=== PATIENT | female | born 1955 | race Caucasian/White ===

== ENCOUNTER 2018-01-23 05:35 | Observation (INO) | payer OTHER ==
--- NOTE | 2018-01-12 14:15 | NUR ---
PATIENT HERE FOR PREADMISSION APPOINTMENT. SHE IS SCHEDULED FOR A LEFT TOTAL HIP REPLACEMENT ON 01/23/18. SHE HAS ONE STEP INTO THE HOME AND NO STEPS ONCE INSIDE THE HOME. SHE HAS A WALK IN SHOWER WITH HAND HELD SHOWER HEAD. SHE STATES SHE HAS A SHOWER BENCH AND TOILET SEAT. SHE WAS TOLD IN THE OFFICE THERE WOULD BE A SCRIPT GIVEN FOR A WALKER WHEN SHE WAS DISCHARGED. DC PLANNING WILL BE NOTIFIED. HER KARMA WILL BE HERE TO TRANSPORT HER HOME AND TO APPOINTMENTS. SHE DOES LIVE IN [place] AND WOULD LIKE PHYSICAL THERAPY SET UP AT [facility]. THIS INFORMATION WILL BE SENT TO DR. SOTO OFFICE AND DC PLANNING FOR FURTHER FOLLOW UP.
[~2018-01-23] VITALS: Ht 162.6 cm; Wt 86.6 kg
[~2018-01-23 05:35] MED LIST: CITALOPRAM HBR20 MG PO; DULERA 200 MCG/13 GM INH; LAMICTAL200 MG PO; LITHIUM CARBON300 M1 PO; METOPROLOL SUC100 MG PO; OMEPRAZOLE20 MG PO; SPIRONOLACTONE50 MG PO; TUMS200 MG PO; VENTOLIN HFA18 GM INH; XYZAL5 MG PO
--- NOTE | 2018-01-23 08:37 | NUR ---
01/23/18 0837 Nivia Skelton 9530-PATIENT ARRIVED TO PACU ON RA O2 SAT 90% PATIENT AWAKE DENIES PAIN OR NAUSEA. ENCOURAGED TO TAKE DEEP BREATHES O2 SAT INCREASED TO 97%. DRESSING TO LEFT HIP CDI. PALPABLE LEFT PEDAL PULSE GOOD CAP REFILL AND WARMTH. ADDUCTOR PILLOW IN PLACE. RR EVEN
--- NOTE | 2018-01-23 10:26 | NUR ---
PT TO FLOOR VIA BED, ACCOMPANIED BY RAMIREZ RN AT 1005. PT AWAKE, ALERT, ORIENTED X 4. PT DENIES PAIN, DENIES NAUSEA. HAS TRANEXAMIC ACID INFUSING, ORDERED. PT ABLE TO MOVE ANKLES AND TOES A SMALL AMOUNT. REPORTS NUMBNESS AND TINGLING TO LOWER LEGS AND FEET. DRESSING TO LEFT HIP C/D/I. CRYO CUFF IN PLACE, SCDs ON, KERRY HOSE ON, AND ALSO HEEL PROTECTORS. BOLSTER IN PLACE BETWEEN LEGS.
--- NOTE | 2018-01-23 11:37 | OR ---
[facility] [address] [place], [place] [address] Signed DATE OF OPERATION: 01/23/2018 SURGEON: Bethany Jordan MD PREOPERATIVE DIAGNOSIS: Degenerative joint disease, left hip. POSTOPERATIVE DIAGNOSIS: Degenerative joint disease, left hip. PROCEDURE PERFORMED: Left total hip arthroplasty. FILTER PRESS SUPERVISOR: KAREEM Lopez. Sydnee was present in critical positioning, retraction, and wound closure. ANESTHESIA: Spinal. BLOOD LOSS: 200 mL. IMPLANTS: Dimas Secur-Fit Advanced, size 8 stem, 54 cup, and a +0 head. BRIEF HISTORY: Leonel is a 62-year-old female with progressive worsening of hip pain. She had undergone nonoperative treatment up to and including steroid injections with only temporary relief. Risks and benefits of operative treatment were discussed with her. She elected to proceed. DESCRIPTION OF PROCEDURE: Once consent was obtained, she was taken to the operating room. After adequate anesthesia, she was placed in the right lateral decubitus position. All downside pressure points well padded. Axillary roll was placed. The leg was then prepped and draped in a standard sterile fashion and standard approach and anterior lateral approach was taken through the skin and subcutaneous tissue. The IT band was divided longitudinally. The vastus lateralis was then split for the tip of the trochanter distally and elevated in a subperiosteal manner around the level of the lesser Electronically Signed By: BETHANY JORDAN MD 01/23/18 1137 PATIENT NAME: LEONEL MCKINLEY OPERATIVE REPORT DATE OF : 51 REPORT #: [id number] PHYSICIAN: BETHANY JORDAN MD PCP: MER BLANC MD REPORT IS CONFIDENTIAL AND NOT TO BE RELEASED WITHOUT AUTHORIZATION [facility] [address], [place] [address] Signed trochanter. The gluteus medius was split bluntly. Gluteus minimus and capsule were split sharply from the trochanter to the acetabular rim. The capsule was then cleared off the neck. She had an extremely large labrum as unable to dislocate her hip safely, so the femoral neck cut was made 1 fingerbreadth above the lesser trochanter and the femoral head was removed using a corkscrew. The labrum was then removed. Acetabular soft tissues were cleared off and the acetabulum was reamed starting with a 45 went to 54. The 54 cup was then impacted in 45 degrees of abduction and 15 degrees of anteversion. The liner was impacted. The attention was then turned to the proximal femur, which was opened using the cookie cutter, followed by the Charnley awl. The femur was then sequentially reamed up to a 9 and broached to an 8. The 8 was quite well fitting in the metaphysis. The standard offset neck, +0 head were attached and the hip was reduced. The leg lengths found to be equal. She had 110 degrees of flexion, 30-degree internal and external rotation with no impingement. The hip was then dislocated and the trial was removed. The final stem was impacted until it was well seated and stable. The +0 head was impacted onto the stem. The hip was again reduced, taken through the range of motion as noted above and found to be stable. The wound was copiously irrigated with antibiotic solution throughout the procedure. A total of 2 L antibiotic irrigation was used. The periarticular soft tissues were then injected with 100 mL ropivacaine, Toradol mixture. The capsule was closed with #1 Vicryl. The vastus and IT band layers were closed independently using #2 Stratafix subcutaneous tissue with 0 Stratafix, and skin with macario. Wound was dressed with Mepilex dressing and Opsite. She was placed in a hip abduction brace, taken to the recovery room in satisfactory condition. All sponge, needle, and instrument counts were correct. Bethany Jordan MD BA/MODL /[id number] Copies: ~ Electronically Signed By: BETHANY JORDAN MD 01/23/18 1137 PATIENT NAME: LEONEL MCKINLEY OPERATIVE REPORT DATE OF : 51 REPORT #: [id number] PHYSICIAN: BETHANY JORDAN MD PCP: MER BLANC MD REPORT IS CONFIDENTIAL AND NOT TO BE RELEASED WITHOUT AUTHORIZATION
--- NOTE | 2018-01-23 12:03 | NUR ---
PT IN BED, TOLERATED JELLO, CHICKEN BROTH, AND IS EATING CRACKERS. DENIES NAUSEA. DID REPORT PAIN TO LEFT HIP 3/10. PT'S PERSONAL SUPPLIES AND CALL LIGHT IN REACH. IN ROOM WITH PT.
--- NOTE | 2018-01-23 12:17 | NUR ---
PT REPORTED 3/10 PAIN TO LEFT HIP. GAVE DILAUDID 0.6 MG IV PRN. AT BEDSIDE.
--- NOTE | 2018-01-23 12:51 | NUR ---
PT IN BED. RATES PAIN TO LEFT HIP 10/15. HAS PERSONAL SUPPLIES AND CALL LIGHT IN REACH. PT REPORTS THAT SHE STILL FEELS A SMALL AMOUNT OF TINGLING TO LEFT FOOT, BUT THAT HER SENSATION IS INTACT. CAPILARY REFILL LESS THAN 3 SECONDS, PEDAL PULSES STRONG. DRESSING TO LEFT HIP C/D/I.
--- NOTE | 2018-01-23 12:57 | NUR ---
PT RESTING QUIETLY IN BED BY HERSELF. SHE WAS ALERT, AWAKE AND INVITED ME IN. SHE SAID SHE HAS NO PAIN, AND WILL PAY CLOSE ATTENTION. SHE SAID SHE HAS PRAYED ALOT IN PREP, AND HAS OTHERS PRAYING WELL. EXTENDED A BLESSING, WILL FOLLOW NEEDED
--- NOTE | 2018-01-23 14:14 | NUR ---
SALES REPRESENTATIVE PRINTING PAPER REPORTS TO THIS RN THAT PT IS HAVING 7/10 PAIN. THIS RN TO ROOM. PT REPORTS 8/10 PAIN. PT IS AWAKE AND ALERT. RR = 16 BPM. PAIN MEDICATION GIVEN (SEE MAR). PT DRIFTS OF TO SLEEP. RR=16BPM. BED RAILS UP. CALL LIGHT WITHIN REACH.
--- NOTE | 2018-01-23 14:52 | NUR ---
PT DROWSY, AROUSED TO VERBAL STIMULI, REPORTED THAT THE PAIN TO HER LEFT HIP HAS IMPROVED, BUT THAT SHE STILL HAS 7/10 PAIN TO LEFT HIP. THIS RN ASSESSED PT. DRESSING REMAINS C/D/I. DENIES FEELING URGE TO VOID AT THIS TIME. PT REPORTS "A LITTLE" TINGLING TO LEFT FOOT, BUT DENIES FEELING OF NUMBNESS. PT REMAINS ON 1L O2 VIA NC. PERSONAL SUPPLIES AND CALL LIGHT IN REACH.
--- NOTE | 2018-01-23 15:20 | NUR ---
PT GIVEN SCHEDULED MEDICATIONS. ALSO GIVEN DILAUDID 0.6 MG IV PRN FOR C/O 7/10 PAIN TO LEFT HIP.
--- NOTE | 2018-01-23 15:25 | NUR ---
NOTIFIED DR. WOOTEN THAT PT'S SBP WAS 93 MAUNUAL, AND THAT HIS SCHEDULED METOPROLOL WAS HELD. DR. WOOTEN VERBALIZED UNDERSTANDING.
[2018-01-23] MEDS ORDERED: CYCLOBENZAPRINE10 MG PO (15:28)
--- NOTE | 2018-01-23 15:39 | NUR ---
Medications reconciled by pharmacist using pharmacy records and patient interview
--- NOTE | 2018-01-23 16:26 | NUR ---
PT C/O 9-05/17 PAIN. PT'S BP HAS BEEN SOFT, AND RESPIRATORY RATE 14-16. PT DROWSY, BUT AROUSABLE TO VERBAL STIMULI. NOTIFIED SALVADOR POSEY CRNA, WHO GAVE ORDER FOR PT TO RECIEVE THE PO ANALGESIC THAT DR. SOTO HAS ORDERED. ALSO NOTIFIED DR. SOTO OF ABOVE NOTED. DR. SOTO REQUESTED THAT THIS RN CONTACT SALVADOR POSEY CRNA, AND ASK THAT SHE COMES AND PLACES A FEMORAL BLOCK, AND TO LET SALVADOR KNOW THAT SHE CAN CALL DR. SOTO REAGARDING THIS. NOTIFIED SALVADOR VIA TELEPHONE OF ABOVE NOTED. SALVADOR STATED THAT SHE WOULD COME IN TO DO THIS.
--- NOTE | 2018-01-23 17:29 | NUR ---
PT IN BED. DID BLADDER SCAN, WHICH SHOWED 268 ML. PT DENIED URGE TO VOID.
--- NOTE | 2018-01-23 17:33 | NUR ---
SALVADOR POSEY, MULTI SITE LEASING CONSULTANT CAME TO FLOOR, SAW PT FOR PAIN CONTROL. SEE SALVADOR'S NOTES.
--- NOTE | 2018-01-23 17:39 | NUR ---
NOTIFIED DR. SOTO THAT PT HAS NOT YET VOIDED, AND THAT BLADDER SCAN SHOWED [address] SOTO THAT PT'S SBP HAS BEEN IN 90s TO LOW 100s SINCE ARRIVAL TO FLOOR FROM PACU. RECIEVED TORB TO GIVE 1 LITER NS BOLUS OVER 1 HOUR.
--- NOTE | 2018-01-23 18:00 | NUR ---
PT IS ON 2L O2 VIA NC, SHE DESATURATED TO 84% AT ONE POINT WHEN SALVADOR Sargent CRNA, AND DUSTIN GUZMÁN WERE WITH PT FOR FEMORAL BLOCK PLACEMENT. PT HAD BEEN ON RA AT THE TIME. PER REPORT FROM DUSTIN GUZMÁN, PT WAS PLACED ON 2L O2 WHEN SHE DESATURATED TO 84%, AND PT'S OXYGEN SATURAION LEVEL REMAINED 90% OR GREATER FOLLOWING APPLICATION OF O2. PT IS SLEEPING, HOB ELEVATED. SAT IS CURRENTLY 94%. PT AROUSED TO VERBAL STIMULI. RATED PAIN TO LEFT HIP 1-2/10, STATED THAT HER PAIN IS "MUCH BETTER" NOW.
--- NOTE | 2018-01-23 18:28 | NUR ---
PT HAD LEFT TOTAL HIP SURGERY TODAY. SBP HAS BEEN IN 90S-LOW 100S. PT GIVEN DILAUDID 0.6 MG IV PRN X 2, AND MORPHINE 2 MG IV PRN X 1 FOR REPORTS OF WORSENING PAIN TO LEFT HIP, REACHING HIGH 10/10. PT HAS NOT YET VOIDED URINE, AND BLADDER SCAN SHOWED 268 ML. PT IS RECIEVING 1 LITER NS BOLUS FOR SOFT PRESSURE AND NO VOID. SALVADOR P, PROCESS VALIDATION ENGINEER UP TO FLOOR, DID FEMORAL BLOCK. PT REPORTED PAIN DECREASED TO 1-2/10. PT DROWSY, BUT AROUSES EASILY TO VERBAL STIMULI. DRESSING TO LEFT HIP C/D/I. CMS INTACT. TOLERATED CLEAR LIQUIDS AND CRACKERS THUS FAR.
--- NOTE | 2018-01-23 19:40 | NUR ---
IN ROOM FOR REPORT, PT IS DROWSY BUT AWAKE ON AND OFF. PULSEOX IN ON AND PT'S RESPIRATIONS ARE EVEN AND NONLABORED ON 2 LNC. CALL LIGHT IS WITHIN REACH.
--- NOTE | 2018-01-23 20:45 | NUR ---
ROUNDED CHARGE. PATIENT IS RESTING IN BED. PATIENT DENIES ANY PAIN. PATIENT DENIES ANY COMMENTS, QUESTIONS, OR CONCERNS. NO NEEDS NOTED AT THIS TIME. CALL LIGHT IN REACH.
--- NOTE | 2018-01-23 22:57 | NUR ---
PT WAS NOT ABLE TO AMBULATE TO BEDSIDE COMMODE, HER LEGS WERE VERY WEAK EVEN THOUGH SHE REPORTS NO NUMBNESS OR TINGLING IN BILAT LE. PT ATTEMPTED TO VOID ON BEDPAN BUT WAS NOT ABLE. SPOKE WITH DR WOOTEN TO REPORT BLADDER SCAN OF 326 (TRIED BOTH BS MACHINES). DR WOOTEN SAID TO PLACE A GRANT CATH, DRAIN BAG, THEN GIVE 500 CC OF LR OVER 1 HOUR. THEN REPORT URINE OUTPUT TO HIM, KAMILLA.
--- NOTE | 2018-01-23 23:44 | NUR ---
PLACED GRANT CATH, PT TOLERATED WELL. THERE WAS A SMALL MISSED VOID ON THE BED AND GRANT DRAINED 360MLS. WILL START 500 CC BOLUS OF LR.
--- NOTE | 2018-01-24 00:19 | NUR ---
PT IS RESTING WITH EYES CLOSED, RESPIRATIONS ARE EVEN AND NONLABORED ON 1 LNC AND AT 94%. LR BOLUS IS INFUSING.
--- NOTE | 2018-01-24 01:19 | NUR ---
SPOKE WITH DR WOOTEN, TO REPORT URINE OUTPUT OF 50MLS AFTER 500MLS BOLUS RAN. WILL RECHECK BP AND HE WOULD LIKE TO BE NOTIFIED IF SBP IS LESS THAN 90. HE WOULD LIKE TO KEEP GRANT IN FOR THE NIGHT.
--- NOTE | 2018-01-24 03:08 | NUR ---
PT IS RESTING WITH EYES CLOSED, RESPIRATIONS ARE EVEN AND NONLABORED. CALL LIGHT IS WITHIN REACH.
--- NOTE | 2018-01-24 04:12 | NUR ---
WOKE PT TO ASSESS HER. SHE NOW REPORTS A LITTLE LESS FEELING IN HER LEFT LEG AND DENIES PAIN. HER LUNGS SOUND CLEAR BUT SHE HAS SOME SLIGHT CRACKLES IN HER LEFT LOWER LUNG. INCISION IS CDI AND CRYO CUFF IS IN PLACE. SHE HAS ABD WEDGE, AES, SCDS AND HEEL PROTECTORS ON. SHE IS ON 1 LNC AND AT 95%. SHE DENIES NEEDS, CALL LIGHT IS WITHIN REACH.
--- NOTE | 2018-01-24 05:38 | NUR ---
PT SLEPT WELL THROUGH THE NIGHT. O2 WAS TITRATED FROM 2 LNC TO 1LNC AND PULSEOX REMAINED ABOVE 93%. PT DENIED PAIN THROUGH THE NIGHT AND HAS CRYOCUFF, AES, SCDS, HEEL PROTECTORS AND ABD WEDGE IN PLACE. IV INFUSING D5NS WITH 20 OF K+ AT 125MLS/HR. SHE WAS NOT ABLE TO VOID LAST NIGHT AND BLADDER SCAN ONLY SHOWED 326MLS. SPOKE WITH DR WOOTEN AND HE SAID TO PLACE A GRANT CATH WHICH DRAINED 360. THEN ORDERED 500 MLS OF LR OVER 1 HOUR. AFTER THAT HOUR SHE ONLY VOIDED 50 MLS WHICH WAS RELAYED TO DR WOOTEN. HE SAID TO CALL IF HER SBP WAS LESS THAN 90 AND IT IMPROVED AFTER THAT. WILL UPDATE DR SOTO WHEN HE IS IN THIS MORNING.
--- NOTE | 2018-01-24 06:04 | NUR ---
IN ROOM TO ADMINISTER MORNING MEDICATIONS. FRESH WATER AT BEDSIDE AND PT DENIES FURTHER NEEDS. CALL LIGHT IS WITHIN REACH.
--- NOTE | 2018-01-24 07:27 | NUR ---
RECIEVED BEDSIDE REPORT FROM DUSTIN ISBELL. PT SLEEPING, AROUSED TO VERBAL STIMULI. PT DROWSY, BUT ORIENTED. PT RATED PAIN TO LEFT HIP 4/10. PT ON 1L O2 VIA NC, OXYGEN SATURATION LEVEL 95%. PERSONAL SUPPLIES AND CALL LIGHT IN REACH.
--- NOTE | 2018-01-24 07:55 | NUR ---
DR. SOTO IN TO SEE PT. PT DENIED HAVING QUESTIONS FOR DR. SOTO AT THIS TIME.
--- NOTE | 2018-01-24 09:45 | NUR ---
PT UP IN HALLS, AMBULATED WITH FWW WITH JUS, PHYSICAL THERAPIST. PT STILL DROWSY. RESPIRATORY RATE 17 BPM. REMAINS ON 1L O2 VIA NC.
--- NOTE | 2018-01-24 11:15 | NUR ---
PT IN BED, RESTING QUIETLY WITH EYES CLOSED. CLEARED IV PUMP. NO S/S DISTRESS OR DISCOMFORT. PERSONAL SUPPLIES AND CALL LIGHT IN REACH.
--- NOTE | 2018-01-24 12:05 | NUR ---
PT RESTING IN BED, DROWSY WOULD TALK SOME AND DROP OFF FOR A MOMENT AND THEN COME BACK. IN RM. I DISCUSSED WITH PT AND REGARDING THEIR RESTRICTIONS AND EXPLAINED BRIEFLY THEIR RAMIFICATIONS. PT DOZED OFF, ASKED ME TO CHECK WITH ADMITTING. WILL FOLLOW UP
--- NOTE | 2018-01-24 12:50 | NUR ---
PT IN BED, EATING LUNCH, TOLERATING WELL. PT IS MORE ALERT, AND IS NOW ON RA, OXYGEN SATURATION LEVEL 94%. PT RATED PAIN TO LEFT HIP 3/10, 3 IS PT'S PAIN GOAL NUMBER. PT DENIED NEEDS. PERSONAL SUPPLIES AND CALL LIGHT IN REACH.
--- NOTE | 2018-01-24 14:22 | NUR ---
PAYAM, OCCUPATIONAL THERAPY, IN WITH PT, ASKING PT AND PT'S QUESTIONS REGARDING THEIR HOME SET UP. PT RATED PAIN TO LEFT HIP 3 TO 4/10, DENIED NEED FOR PRN ANALGESIC. PT ALERT, ORIENTED.
--- NOTE | 2018-01-24 14:50 | NUR ---
FOLLOWED UP WITH PT'S RE RESTRICTIONS FOR VISITATION. SHE WANTED FAMILY ACCESS, BUT NO ONE ELSE. I EXPLAINED OPTIONS, UNDERSTOOD, AND THANKED ME FOR EXPLAINING. WILL CONTINUE TO FOLLOW
--- NOTE | 2018-01-24 17:52 | NUR ---
PT'S IV SALINE LOCKED. PT TOLERATING REGULAR DIET VERY WELL. PT WAS DROWSY THIS AM, BUT BECAME MUCH MORE ALERT THE DAY PROGRESSED. PT ON RA, CONTINOUS PULSE OX ON, OXYGEN SATURATION LEVEL 90% OR GREATER. PT HAS RATED PAIN TO LEFT HIP 3-4/10 THROUGHOUT SHIFT, AND DENIED NEED FOR PRN ANALGESIC. UP WITH 1 PERSON ASSIST, WORKED WITH PHYSICAL THERAPY. PT HAD A FOELY CATHETER, WHICH WAS REMOVED THIS EVENING PER ORDER. PT HAD 500 CC OUT FROM 1000 TO 1400, AND 500 CC OUT FROM 1400 TO 1744, WHEN GRANT WAS D/C'D. DRESSING TO LEFT HIP C/D/I, CMS TO LLE INTACT.
--- NOTE | 2018-01-24 19:01 | NUR ---
IN ROOM FOR REPORT PT IS AWAKE IN BED. SHE DENIES NEEDS AT THIS TIME. CALL LIGHT IS WITHIN REACH.
--- NOTE | 2018-01-24 20:30 | NUR ---
PATIENT CALLED TO USE THE BATHROOM. 1 PA USING GAIT BELT AND WALKER TO THE COMMODE. PATIENT IS IN BED NOW. CRYO REFILLED, SCD, AND CPOX ARE BACK ON. CALL LIGHT IN REACH.
--- NOTE | 2018-01-24 21:10 | NUR ---
IN ROOM TO ADMINISTER MEDICATIONS AND ASSESS PT. SHE STATES PAIN IS AT 3 OR 4 AND TOLERABLE. REMINDED PT TO CALL WHEN SHE FEELS THE NEED FOR OXYCODONE. THE LEFT HIP DRESSING IS CDI, VS ARE STABLE AND URINE OUTPUT IS GOOD. PT DENIES FURTHER NEEDS AT THIS TIME.
--- NOTE | 2018-01-24 23:15 | NUR ---
IN ROOM TO ADMINISTER LOPRESSOR AND PT REPORTS PAIN AT 4/10. ADMINISTERED 5MG OXYCODONE AND HELPED PT TO THE RESTROOM. SHE WILL CALL WHEN FINISHED.
--- NOTE | 2018-01-25 00:51 | NUR ---
ASSISTED PATIENT FROM BATHROOM TO BED. CRYO SCD AND CPOX BACK ON. CALL LIGHT IN REACH.
--- NOTE | 2018-01-25 01:05 | NUR ---
PT IS AWAKE IN BED AND STATES SHE IS GOING TO GO TO BED NOW. SHE DENIES NEEDS.
--- NOTE | 2018-01-25 01:50 | NUR ---
PT CALLED FOR WATER AND JELLO. SHE DENIES FURTHER NEEDS.
--- NOTE | 2018-01-25 03:22 | NUR ---
PT CALLED TO USE RESTROOM. SHE REPORTS PAIN IS CLIMBING, ADMINISTERED 10MG OXYCODONE. SHE IS BACK IN BED WITH ALL OF HER ORDERED DEVICES IN PLACE. LEFT HIP DRESSING IS DRY AND INTACT WITH SCANT SHADOWING. HER LUNGS ARE CLEAR ON RA AND SHE IS MAINTAINING O2 SAT ABOVE 95%. CALL LIGHT IS WITHIN REACH AND SHE DENIES FURTHER NEEDS.
--- NOTE | 2018-01-25 04:06 | NUR ---
PT IS RESTING WITH EYES CLOSED, RESPIRATIONS ARE EVEN AND NONLABORED. CALL LIGHT IS WITHIN REACH.
--- NOTE | 2018-01-25 06:51 | NUR ---
PT COMPLAINED 5/10 PAIN, AFTER GETTING BACK TO BED FROM USING THE COMMODE. MED WITH PRN PAIN MED. PLACED HEARING AIDES WHERE SHE CAN REACH AT HER REQUEST, STRATEGIC ACCOUNT DIRECTOR PLACED INTO HER BAG.
--- NOTE | 2018-01-25 07:20 | NUR ---
RECIEVED BEDSIDE REPORT FROM DUSTIN ISBELL. PT AWAKE, ALERT. RATED PAIN TO LEFT HIP 4/10. DENIED NEEDS AT THIS TIME. PERSONAL SUPPLIES AND CALL LIGHT IN REACH.
[2018-01-25] MEDS ORDERED: OXYCODONE HCL5 MG PO (08:25)
[2018-01-25] MEDS ORDERED: XARELTO10 MG PO (08:25)
[2018-01-25] MEDS ORDERED: NEURONTIN300 MG PO (08:25)
[2018-01-25] MEDS ORDERED: MIRALAX17 GM PO (08:25)
--- NOTE | 2018-01-25 09:04 | NUR ---
PT TRANSFERED FROM BED TO RECLINER WITH FWW WITH SBA. PT RATED PAIN TO LEFT HIP 3/10. DRESSING TO LEFT HIP DRY, INTACT, HAS SMALL AMOUNT OF SHADOWING TO MIDLINE AREA OF DRESSING. CMS TO LLE INTACT. PT ALERT, ORIENTED X 4. DENIED NEEDS. Neva LUU. CURRENTLY IN ROOM TO WORK WITH PT.
--- NOTE | 2018-01-25 09:08 | NUR ---
FAXED CHART NOTES TO [facility] IN [place], TALKED WITH PARISA IN THE OFFICE THERE. FAXED FACESHEET, ORDER, H AND P X 2, OP NOTE, PROG NOTES, PT AND OT EVALS AND NOTES. RECIEVED FAX CONFIRMATION SHEET.
[2018-01-25] MEDS ORDERED: METOPROLOL SUC100 MG PO (09:09)
--- NOTE | 2018-01-25 09:30 | NUR ---
CALLED DR. SOTO TO JEZ DRESSING ORDERS, RECIEVED TORB TO CHANGE MEPILEX AND OP SITE DRESSING TO LEFT HIP, AND FOR PT TO REMOVE DRESSING IN 3 DAYS, AND LEAVE REVOLVING INVENTORY CLERK.
--- NOTE | 2018-01-25 09:37 | NUR ---
DRESSING TO LEFT HIP REPLACED, LYN INTACT, WOUND EDGES WELL APPROXIMATED, SURGICAL SITE WNL. SCANT AMOUNT OF SANGUAINOUS DRAINAGE TO INCISION NOTED. PT HAD A LARGE SOFT TO LOOSE BM, AND HAD A MISSED VOID OF URINE. PT NOW SITTING UP IN RECLINER. PERSONAL SUPPLIES AND CALL LIGHT IN REACH. PT RATES PAIN TO LEFT HIP 3-4/10, DENIES NEED FOR PRN ANALGESIC AT THIS TIME.
--- NOTE | 2018-01-25 10:19 | NUR ---
BOB, PHARMACIST IN PT'S ROOM REVIEWING MEDICATIONS WITH PT, EDUCATING REGARDING PURPOSE OF MEDICATIONS, WELL SIDE EFFECTS. PT VERBALIZING UNDERSTANDING. PT'S AT PT'S SIDE.
--- NOTE | 2018-01-25 10:43 | NUR ---
GAVE PT AND HER DISCHARGE INSTRUCTIONS VERBALLY AND PRINTED. QUESTIONS ASKED AND ANSWERED, PT AND VERBALIZED UNDERSTANDING. PT GIVEN W/C RIDE WITH TOOL DESIGN ENGINEER, DIACHARGED TO HOME. LEFT FLOOR AT 1045.
== END 2018-01-25 10:45 | disposition home or self-care (01) ==
LOC: DS 05:35 → EDSTATUS 06:45 → MS 06:45 → DS 06:45 → MS 10:00
PROVIDERS: ADMIT Specialist
PROC: 3E0T3BZ Introduction of Anesthetic Agent into Peripheral Nerves and Plexi, Percutaneous Approach (ICD-10-PCS; 2018-01-23)
PROC: 0SRB04Z Replacement of Left Hip Joint with Ceramic on Polyethylene Synthetic Substitute, Open Approach (ICD-10-PCS; principal; 2018-01-23 06:45)
DX: M16.12 Unilateral primary osteoarthritis, left hip (principal); I10 Essential (primary) hypertension; K21.9 Gastro-esophageal reflux disease without esophagitis; G89.18 Other acute postprocedural pain; F31.9 Bipolar disorder, unspecified; J45.30 Mild persistent asthma, uncomplicated; Z79.51 Long term (current) use of inhaled steroids; Z79.899 Other long term (current) drug therapy; Z88.1 Allergy status to other antibiotic agents; Z88.0 Allergy status to penicillin; Z88.2 Allergy status to sulfonamides; Z88.8 Allergy status to other drugs, medicaments and biological substances
CPT/HCPCS: 01214; 36415; 51798; 64447; 72170; 76942; 80048; 80178; 85025; 94640; 94762; 97110; 97116; 97162; 97166; 97535; C1776; G0378; G8978; G8979; J0690; J1170; J2250; J2270; J2274; J2704; J2795; J3010; J7120